=== PATIENT | female | born 1990 | race Caucasian/White ===

== ENCOUNTER 2017-07-04 11:22 | Emergency (ER) | payer MEDICAID ==
[~2017-07-04] VITALS: Ht 149.9 cm; Wt 51.5 kg
[2017-07-04 11:23] VITALS: BP 143/76; PULSE 64; RESP 16; TEMP 97.7; O2SAT 97
[2017-07-04] MEDS ORDERED: OCUF0.3D EACH EYE (12:20)
--- NOTE | 2017-07-04 12:20 | PD ---
HPI Chief Complaint: Eye Problems/Injury Time Seen by Provider: 12:11 Travel History International Travel<30 days: No Contact w/Intl Traveler<30days: No Traveled to known affect area: No History of Present Illness HPI 26-year-old female presents emergency Department with complaint of pinkeye to her left eye and starting to come into her right eye times one week. Onset of right eye symptoms today. Her daughter also had pinkeye. Denies fever, vomiting. Reports itchy eyes. Reports waking up in the morning with her left eye crusted shut and this morning her right eye. Denies change in vision. Reports purulent drainage from her eyes. Denies eye pain. 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 Has also been taking ibuprofen and Benadryl for symptom management. No known allergies. Has no other medical complaints. Symptoms are mild in severity. No other modifying factors or associated signs and symptoms. PFSH Past Medical History Immunizations Current: Yes Social History Alcohol Use: No Tobacco Use: No Substance Use: No Allergies-Medications (Allergen,Severity, Reaction): Coded Allergies: No Known Allergies (Unverified , 07/04/17) Reported Meds & Prescriptions Reported Meds & Active Scripts Active Ocuflox Opth Drops (Ofloxacin Opth Drops) 0.3 % Drops 2 Drop EACH EYE QID 7 Days Review of Systems Except as stated in HPI: all other systems reviewed are Neg Physical Exam Narrative GENERAL: Well-nourished, well-developed female patient, in no acute distress; afebrile, nontoxic-appearing SKIN: Warm and dry. HEAD: Atraumatic. Normocephalic. EYES: Pupils equal and round at 3 mm with brisk reaction. PERRLA. EOMI. Left eye with mild scleral erythema and mild lid edema. No orbital tenderness, erythema or cellulitis. Bilateral eye without photophobia. No consensual photophobia. No scleral icterus. Yellowish drainage to left eye; crusted drainage noted to upper and lower eyelashes. Right eye with mild scleral erythema and without lid edema. ENT: Mucosa pink and moist. No erythema or exudates. No uvular edema. No uvular , palatal, or tonsillar deviation. Airway patent. EARS: Bilateral pinnae and external canals appear within normal limits. Bilateral tympanic membranes without erythema, dullness or perforation. NECK: Trachea midline. No lymphadenopathy. CARDIOVASCULAR: Regular rate. RESPIRATORY: No accessory muscle use. GASTROINTESTINAL: Flat. NEUROLOGICAL: Awake and alert. Oriented 3. No obvious cranial nerve deficits. Motor grossly within normal limits. Normal speech. PSYCHIATRIC: Appropriate mood and affect; insight and judgment normal. Data Data Last Documented VS Vital Signs Date Time Temp Pulse Resp B/P (MAP) Pulse Ox O2 Delivery O2 Flow Rate FiO2 07/04/17 11:23 97.7 64 16 143/76 (98) 97 Room Air MDM Medical Decision Making Medical Screen Exam Complete: Yes Emergency Medical Condition: Yes Medical Record Reviewed: Yes Differential Diagnosis Viral conjunctivitis, bacterial conjunctivitis, allergic rhinitis Narrative Course 26-year-old female physical examination consistent with conjunctivitis. She is afebrile and nontoxic-appearing. Denies fever, vomiting. Her daughter was treated for pinkeye recently. Patient has been using her daughter's polymyxin eyedrops with no improvement in symptoms. Ofloxacin prescribed for home. Instructed patient to follow up with primary care provider. Patient verbalizes understanding and agreement with treatment plan. Patient is medically cleared and stable for discharge. Discussed reasons to return to the emergency department. Patient agrees with treatment plan. The patients vital signs are stable and the patient is stable for outpatient follow-up and treatment. Patient discharged home, stable and in no acute distress. Diagnosis Primary Impression: Conjunctivitis Qualified Codes: H10.9 - Unspecified conjunctivitis Referrals: Primary Care Physician Patient Instructions: Conjunctivitis (ED), General Instructions Departure Forms: Tests/Procedures, Work Release Enter return to work date: Jul 06, 2017 Additional Instructions: Conjunctivitis is contagious Use antibiotic eye drops as prescribed Apply warm or cool compresses to both eyes for a few minutes several times daily to minimize irritation Avoid triggers, such as allergens, that may irritate your eyes Wash your hands frequently Do not share washcloths, towels, pillows, or any other material that has touched your eyes with any other household members Follow-up with your primary care provider Follow-up with ophthalmology as needed Return to the emergency department immediately with worsening of symptoms Med/Other Pt SpecificInfo: Prescription(s) given Scripts Ofloxacin Opth Drops (Ocuflox Opth Drops) 0.3 % Drops 2 DROP EACH EYE QID for Infection for 7 Days, #1 BOTTLE 0 Refills Prov: Kyara Mendoza 07/04/17 Disposition: 01 DISCHARGE HOME Condition: Stable Kyara Mendoza Jul 04, 2017 12:20
== END 2017-07-04 12:46 | disposition home or self-care (01) ==
LOC: NEPK 11:22
DX: H10.9 Unspecified conjunctivitis (principal)
CPT/HCPCS: 99283